=== PATIENT | female | born 1950 | race Caucasian/White ===

== ENCOUNTER → 2016-05-16 | Outpatient (CLI) | payer OTHER ==
--- NOTE | 2016-05-16 22:08 | CONS ---
DATE OF CONSULTATION: 05/16/2016 This is a 65-year-old female patient coming in due to concern of obstructive sleep apnea. [facility] [place] Recently she has been noted to have snoring and this has been reported to her by separate family members. She was very much concerned knowing that on 2 occasions she was also told to stop breathing. She is active. No major hypersomnia or sleepiness during the day. Her [place] score is at 7. She does not fall asleep while driving or while performing routine daily activities. On a few occasions she has woken up due to loud snoring gasps. No grinding of the teeth. No restlessness in the lower extremities. No anxiety. No depression. Typically she does to bed around 11 p.m., wakes up at 5:30 a.m. in the morning. Averages around 6 to 7 hours of sleep. No naps during the day. No substance abuse. No alcoholism. PAST MEDICAL HISTORY: Hypothyroidism and hypertension. PAST SURGICAL HISTORY: Appendectomy. ALLERGIES: Not known. She has some lactose intolerance. Outpatient medication list includes: 1. Metoprolol 100 mg p.o. twice daily. 2. Levothyroxine 112 mcg p.o. daily. 3. Norvasc 5 mg p.o. daily. 4. Hydrochlorothiazide 50 mg p.o. daily. SOCIAL HISTORY: Nonsmoker. No history of alcohol. No history of IV drugs. FAMILY HISTORY: Negative for sleep apnea. REVIEW OF SYSTEMS: Twelve-point review of systems was done. Positive findings were mentioned above in the history of present illness. BP is 156/71, pulse 66, respirations 16, temperature 97.4, saturation 95% on room air. Neck size 15 inches. Weight is 213. Height is 62-1/2 inches. BMI is 38.3. GENERAL APPEARANCE: Calm, comfortable. HEENT: Short neck. Mallampati class IV. Bilateral tonsillar enlargement. No goiter or neck masses. LUNGS: Clear to auscultation. HEART: Sounds are regular rate and rhythm. Normal S1, S2. ABDOMEN: Soft, nontender. No organomegaly. EXTREMITIES: No edema, cyanosis, or clubbing. IMPRESSION: 1. Sleep apnea suspected, currently under investigation. 2. Loud snoring. 3. Mallampati class IV with tonsillar enlargement. 4. Hypertension. 5. Hypothyroidism. PLAN: 1. Weight loss. 2. PSG. 3. Will follow with the results and make further recommendations accordingly.
== END | disposition home or self-care (01) ==
LOC: SLEEP 16:43
PROVIDERS: ATTEND Internal Medicine Critical Care Medicine
DX: R06.83 Snoring (principal); I10 Essential (primary) hypertension; E03.9 Hypothyroidism, unspecified
CPT/HCPCS: 99211

== ENCOUNTER → 2016-11-14 | Outpatient (CLI) | payer OTHER ==
--- NOTE | 2016-11-14 19:27 | PN ---
PROGRESS NOTE This is a 66-year-old female patient diagnosed having symptomatic obstructive sleep apnea, moderate in severity, with an AHI of 15, worse during REM sleep. The patient was also having severe nocturnal oxygen desaturation that recovered with CPAP therapy. The patient is coming in for a compliancy followup. She tells me that she is benefiting from the treatment. She has no complaints. She is averaging around 4.6 hours of CPAP use every night. Her average CPAP use is around 28 out of the past 30 days. Her AHI is down to 1 and her leak factor is only 32 L/minute. She is benefitting from the treatment. She is quite happy. She reports that her sleep quality is improved and she is more restful during sleep. She is receiving CPAP therapy at a pressure of 12 cm of water. She has no specific complaints otherwise. REVIEW OF SYSTEMS: Twelve-point review of systems was done. The positive findings were all mentioned above in the history of present illness. CONSTITUTIONAL: Negative for weight loss or weight gain. HEENT: Negative for snoring while on CPAP therapy. CARDIOVASCULAR: Negative for angina or chest pain. PULMONARY: As above. No cough, sputum production ( ) or wheezing. GI is negative for nausea, vomiting, abdominal pain or GI bleed. : Negative for dysuria, frequency, urgency. MUSCULOSKELETAL: Negative for active arthritis or joint pain. Skin is negative for any rashes, ulcers or wounds. Neuro is negative for any focal neurological deficits or any stroke or seizure activity or change in mental status. Psych is negative for anxiety or depression. Rheumatologic and endocrinologic are both negative. PHYSICAL EXAMINATION: BP is 150/98, pulse 57, respirations 16, temperature 98.1. Weight is 213. [place] score is 11. Saturation 95% on room air. GENERAL APPEARANCE: Calm and comfortable. HEENT: Negative for JVD. No goiter or neck masses. LUNGS: Diminished breath sounds; otherwise clear. HEART: Sounds are regular rate and rhythm. Normal S1, S2. No S3, S4. No murmurs. ABDOMEN: Soft, nontender. No organomegaly. EXTREMITIES: No edema. No cyanosis or clubbing. NEURO: Alert and oriented x3. No focal neurological deficits. Skin is negative for wounds or ulcers. MUSCULOSKELETAL: Negative for any joint deformities. IMPRESSION: Obstructive sleep apnea, AHI of 15, currently receiving successful CPAP therapy at a pressure of 12. The patient is clinically improved. She is very compliant. PLAN: 1. Continue CPAP at the same level of pressure. 2. Encourage weight loss. 3. Implement good sleep hygiene measures. 4. See me back in a year's time, earlier if needed. DAYAMI / IJN: [id number] /
== END | disposition home or self-care (01) ==
LOC: SLEEP 15:52
PROVIDERS: ATTEND Internal Medicine Critical Care Medicine
DX: G47.33 Obstructive sleep apnea (adult) (pediatric) (principal)

== ENCOUNTER → 2017-04-17 | Outpatient (CLI) | payer MEDICARE, OTHER ==
--- NOTE | 2017-04-17 12:57 | PN ---
PROGRESS NOTE This patient is 66 and she was having symptomatic obstructive sleep apnea with an AHI of 15, worse during REM. I saw this patient in my office on October of 2016 and her compliance data showed adequate use and the patient was benefitting from the treatment. At that time, I gave her an AirFit F20 full face mask knowing that this was much more comfortable compared to original [place] mask that she had. Unfortunately, she was unable to get the mask from [facility] and she has not utilized her CPAP machine over the past 6 months. She is asymptomatic and she is requesting a prescription for the AirFit F20 full face mask. The patient seems to be committed to treatment and she wants to undergo the CPAP treatment especially as she has become symptomatic while off treatment. She has no other new complaints. No recent weight gain. She is tired and sleepy during the day. She is snoring for now. PHYSICAL EXAMINATION: BP is 149/89, pulse 56, respirations 16, temperature 98.5, saturation 97% on room air. GENERAL APPEARANCE: Calm comfortable. Head is atraumatic, normocephalic. NECK: Supple. There is no JVD. No goiter or neck mass. LUNGS: Clear to auscultation. HEART: Sounds regular rate and rhythm. Normal S1, S2. No S3, S4. No murmurs. ABDOMEN: Soft, nontender. No organomegaly. EXTREMITIES: No edema. No cyanosis or clubbing. IMPRESSION: Obstructive sleep apnea AHI of 15 currently on CPAP therapy at a pressure of 12. Treatment has been interrupted as the patient does not have the appropriate mask interface. PLAN: 1. Refill her mask and the patient was given an AirFit F20 full face mask. 2. See me back in 6 months for a followup and I anticipate improvement in the compliancy with the full-face mask. 3. We will continue to follow. MMODL / IJN: [id number] /
== END | disposition home or self-care (01) ==
LOC: SLEEP 11:35
PROVIDERS: ATTEND Internal Medicine Critical Care Medicine
DX: G47.33 Obstructive sleep apnea (adult) (pediatric) (principal); Z99.89 Dependence on other enabling machines and devices

== ENCOUNTER → 2017-05-02 | Outpatient (CLI) | payer OTHER ==
--- NOTE | 2017-05-02 17:51 | XR ---
EXAMINATION TYPE: XR knee complete LT DATE OF EXAM: 05/02/2017 CLINICAL HISTORY: Left-sided knee pain after twisting injury. TECHNIQUE: Three views of the left knee are obtained. COMPARISON: None. FINDINGS: There is no acute fracture/dislocation evident in left knee. There is mild tricompartment joint space loss. Fabella is seen. The overlying soft tissue appears unremarkable. IMPRESSION: There is no acute fracture or dislocation in the left knee.
== END | disposition home or self-care (01) ==
LOC: RADXRMAIN 17:17
PROVIDERS: ATTEND Emergency Medicine
DX: S83.92XA Sprain of unspecified site of left knee, initial encounter (principal)

== ENCOUNTER → 2017-09-03 | Outpatient (CLI) | payer MEDICARE ==
--- NOTE | 2017-09-03 15:57 | XR ---
EXAMINATION TYPE: XR knee complete LT DATE OF EXAM: 09/03/2017 CLINICAL HISTORY: Knee pain after twisting injury. TECHNIQUE: Three views of the left knee are obtained. COMPARISON: 05/02/2017 FINDINGS: There is no acute fracture/dislocation evident in left knee. The tri-compartment joint sp aces appear within normal limits. Incidental note is again made of a fabella The overlying soft tiss ue appears unremarkable. IMPRESSION: There is no acute fracture or dislocation in the left knee.
== END | disposition home or self-care (01) ==
LOC: RADXRMAIN 15:34
PROVIDERS: ATTEND Family Medicine
DX: M25.562 Pain in left knee (principal); M25.462 Effusion, left knee; S89.92XA Unspecified injury of left lower leg, initial encounter